=== PATIENT | female | born 1970 | race Caucasian/White ===

== ENCOUNTER 2019-01-12 06:15 | Day surgery (SDC) | payer BC ==
[2019-01-12] MEDS ORDERED: Lactated Ringers 1,000 ML IV SCH (06:30)
[2019-01-12] MEDS ORDERED: Ketamine HCl 50 MG/ML ONE (08:00)
[2019-01-12] MEDS ORDERED: DIPRIVAN 200 MG/20 ML IV ONE ×2 (08:00→08:11)
[2019-01-12] MEDS ORDERED: Lactated Ringers 1,000 ML IV ONE (08:21)
[2019-01-12 09:10] VITALS: BP 129/90; PULSE 69; O2SAT 98
--- NOTE | 2019-01-13 07:44 | OP ---
SURGERY DATE/TIME: 01/12/2019 0800 PREOPERATIVE DIAGNOSIS: Screening colonoscopy. POSTOPERATIVE DIAGNOSIS: Sigmoid colon polyp. PROCEDURE: Colonoscopy. SURGEON: Yogi Garcia M.D. ANESTHESIA: MAC by Damon Winters CRNA. ESTIMATED BLOOD LOSS: Minimal. SPECIMENS: Hot forceps polypectomy from the sigmoid colon. DESCRIPTION OF PROCEDURE: After informed written consent was obtained, the patient was taken to the endoscopy suite. She underwent monitored anesthesia and digital rectal exam showed normal sphincter tone and no internal lesions. The scope was inserted into the rectum and sequentially the entire colonic mucosa was traversed. The level of cecum was reached and verified with direct visualization of ileocecal valve. Upon withdrawal careful mucosal inspection revealed no abnormalities until the proximal sigmoid colon was reached. There was a small sessile polyp which was grasped with forceps and cauterized at the base and removed in its entirety with no bleeding following removal. No other lesions were encountered upon withdrawal. Retroflexion was performed prior to withdrawal and revealed no internal lesions. The scope was removed and the patient was transferred to the recovery room in good condition.
== END 2019-01-12 09:20 | disposition home or self-care (01) ==
LOC: SDC 06:15
PROVIDERS: ATTEND Family Medicine
DX: Z12.11 Encounter for screening for malignant neoplasm of colon (principal); K63.5 Polyp of colon; I10 Essential (primary) hypertension; E78.5 Hyperlipidemia, unspecified
CPT/HCPCS: 88305; J2704